=== PATIENT | female | born 1980 | race Caucasian/White ===

== ENCOUNTER 2017-12-01 12:01 | Inpatient (IN) | payer OTHER ==
[~2017-12-01] VITALS: Ht 147.3 cm; Wt 65.3 kg
[~2017-12-01 12:01] MED LIST: ALBU90OI; AZIT250 PO; CHLO500 PO; CIPR500 PO; CLIN300 PO; HYDACE10B PO; HYDACE5 PO; HYDACE5325 PO; KETO10 PO; LEVFLO500 PO; MELO7.5 PO; NAPR500 PO; NAPR550 PO; OXYACE5T PO; OXYACE7.5T PO; PREG75 PO; PROM25 PO; RXCYCL10 PO; RXNAPNA550 PO; RXOXYACE PO; SULI200 PO; SULTRIDS PO; TRAM50 PO
[2017-12-01] MEDS ORDERED: VALA500 PO (12:17)
[2017-12-01] MEDS ORDERED: GABA300 PO (12:17)
[2017-12-01] MEDS ORDERED: Bupropion Xl150 MG PO (12:17)
[2017-12-01 12:54] LABS: Source, Urine Catheter
[2017-12-01 13:06] LABS: BASOPHILS ABSOLUTE AUTO 0.02 K/mm3 (0.00-0.23); BASOPHILS PERCENT AUTO 0 % (0-2); EOSINOPHILS ABSOLUTE AUTO 0.01 K/mm3 (0.00-0.68); EOSINOPHILS PERCENT AUTO 0 % (0-6); Hematocrit 32.3 % (33.0-51.0); Hemoglobin 10.8 g/dL (11.5-16.0); IMMATURE GRAN ABSOLUTE AUTO 0.03 K/mm3 (0.00-0.10); IMMATURE GRAN PERCENT AUTO 0 % (0-1); LYMPHOCYTES ABSOLUTE AUTO 0.94 K/mm3 (0.84-5.20); LYMPHOCYTES PERCENT AUTO 11 % (21-46); MONOCYTES ABSOLUTE AUTO 0.66 K/mm3 (0.16-1.47); MONOCYTES PERCENT AUTO 8 % (4-13); Mean Corpuscular HGB 30.2 pg (26.0-34.0); Mean Corpuscular HGB Conc 33.4 g/dL (31.5-36.5); Mean Corpuscular Volume 90 fL (80-100); Mean Platelet Volume 10.3 fL (9.1-12.4); NEUTROPHILS ABSOLUTE AUTO 6.56 K/mm3 (1.96-9.15); NEUTROPHILS PERCENT AUTO 80 % (41-73); Platelet Count 264 K/mm3 (150-400); RDW Coefficient Variation 12.4 % (11.7-14.2); RDW Standard Deviation 40.4 fL (35.1-46.3); Red Blood Cell Count 3.58 M/mm3 (3.80-5.20); White Blood Cell Count 8.22 K/mm3 (4.00-11.30)
[2017-12-01 13:09] LABS: Bilirubin, Urine Neg (Neg); Blood, Urine 4+ (Neg); Glucose Qualitative, Urine Neg (Neg); Ketones, Urine Neg (Neg); Leukocyte Esterase, Urine 3+ (Neg); Nitrite, Urine Pos (Neg); Protein, Urine 3+ (Neg); Urobilinogen, Urine NORM (Normal)
[2017-12-01 13:16] LABS: International Normalized Ratio 1.02; Prothrombin Time Results 10.5 Sec (9.7-11.5)
[2017-12-01 13:24] LABS: Color, Urine Yellow (P-Yellow)
[2017-12-01 13:25] LABS: Appearance, Urine Hazy (Clear)
[2017-12-01 13:27] LABS: White Blood Cells, Urine TNTC /hpf (0-5)
[2017-12-01 13:28] LABS: Bacteria Not Seen /hpf; Squamous Epithelial Cells Not Seen /hpf (Few)
[2017-12-01 13:44] LABS: Alanine Aminotransfer (ALT/SGP 45 U/L (12-78); Albumin, Blood 3.7 g/dL (3.4-5.0); Albumin/Globulin Ratio 0.9 (0.8-1.8); Alk Phos 118 U/L (50-136); Anion Gap 8 mmol/L (6-16); Aspartate Aminotrans (AST/SGOT 43 U/L (12-37); Bilirubin, Total 0.3 mg/dL (0.1-1.0); Blood Urea Nitrogen 9 mg/dL (8-24); Bun/Creatinine Ratio 12.7 (12.0-20.0); CO2, Blood 25 mmol/L (21-32); Chloride, Blood 102 mmol/L (98-108); Creatinine, Blood 0.71 mg/dL (0.40-1.00); Globulin, Blood 4.3 g/dL (2.2-4.0); Glomerular Filtration Rate >60 (60-); Glucose, Blood 116 mg/dL (70-99); Potassium, Blood 3.7 mmol/L (3.5-5.5); Sodium, Blood 135 mmol/L (136-145)
[2017-12-01 20:25] LABS: U Amphetamine Screen DETECTED; U Barbituate Screen Not Detected; U Benzodiazapine Screen Not Detected; U Buprenorphine Screen Not Detected; U Cannabinoids Screen Not Detected; U Cocaine Screen Not Detected; U Methadone Screen Not Detected; U Methamphetamine Screen DETECTED; U Opiates Screen DETECTED; U Oxycodone Screen Not Detected; U Phencyclidine Screen Not Detected; U Propoxyphene Screen Not Detected
[2017-12-02 05:18] LABS: BASOPHILS ABSOLUTE AUTO 0.01 K/mm3 (0.00-0.23); BASOPHILS PERCENT AUTO 0 % (0-2); EOSINOPHILS ABSOLUTE AUTO 0.01 K/mm3 (0.00-0.68); EOSINOPHILS PERCENT AUTO 0 % (0-6); Hematocrit 27.1 % (33.0-51.0); IMMATURE GRAN ABSOLUTE AUTO 0.02 K/mm3 (0.00-0.10); IMMATURE GRAN PERCENT AUTO 0 % (0-1); LYMPHOCYTES ABSOLUTE AUTO 0.57 K/mm3 (0.84-5.20); LYMPHOCYTES PERCENT AUTO 11 % (21-46); MONOCYTES ABSOLUTE AUTO 0.49 K/mm3 (0.16-1.47); MONOCYTES PERCENT AUTO 9 % (4-13); Mean Corpuscular HGB 30.3 pg (26.0-34.0); Mean Corpuscular HGB Conc 33.2 g/dL (31.5-36.5); Mean Corpuscular Volume 91 fL (80-100); Mean Platelet Volume 10.3 fL (9.1-12.4); NEUTROPHILS ABSOLUTE AUTO 4.13 K/mm3 (1.96-9.15); NEUTROPHILS PERCENT AUTO 79 % (41-73); Platelet Count 208 K/mm3 (150-400); RDW Coefficient Variation 12.4 % (11.7-14.2); RDW Standard Deviation 40.6 fL (35.1-46.3); Red Blood Cell Count 2.97 M/mm3 (3.80-5.20); White Blood Cell Count 5.23 K/mm3 (4.00-11.30)
[2017-12-02 05:43] LABS: Anion Gap 9 mmol/L (6-16); Blood Urea Nitrogen 6 mg/dL (8-24); Bun/Creatinine Ratio 10.1 (12.0-20.0); CO2, Blood 20 mmol/L (21-32); Calcium, Blood 8.2 mg/dL (8.5-10.1); Chloride, Blood 109 mmol/L (98-108); Creatinine, Blood 0.59 mg/dL (0.40-1.00); Glomerular Filtration Rate >60 (60-); Glucose, Blood 148 mg/dL (70-99); Percent Saturation 6.2 % (15.0-50.0); Potassium, Blood 3.9 mmol/L (3.5-5.5); Sodium, Blood 138 mmol/L (136-145)
[2017-12-02] MEDS ORDERED: CEFP200 PO (16:03)
[2017-12-02] MEDS ORDERED: ACIDOPHILUS1 EAC1 PO (16:04)
[2017-12-02] MEDS ORDERED: ROXICODONE5 MG PO (16:05)
== END 2017-12-02 16:43 | disposition home or self-care (01) | DRG 872 ==
LOC: ER 12:01 → MEDS 15:02
PROVIDERS: Family Medicine; Internal Medicine
DX: A41.9 Sepsis, unspecified organism (principal); N39.0 Urinary tract infection, site not specified; N12 Tubulo-interstitial nephritis, not specified as acute or chronic; E87.1 Hypo-osmolality and hyponatremia; D63.8 Anemia in other chronic diseases classified elsewhere; B02.9 Zoster without complications; G89.29 Other chronic pain; M54.9 Dorsalgia, unspecified; F17.210 Nicotine dependence, cigarettes, uncomplicated; Z88.5 Allergy status to narcotic agent; Z88.0 Allergy status to penicillin; Z79.899 Other long term (current) drug therapy
CPT/HCPCS: 36415; 74176; 80048; 80053; 81001; 81025; 82607; 82728; 82746; 83540; 83550; 83605; 85025; 85610; 87077; 87086; 87186; 96361; 96365; 96367; 96375; 99285-25; J0696; J0744; J1885; J2405; J3010; J7030

== ENCOUNTER 2018-06-13 00:29 | Emergency (ER) | payer OTHER ==
[~2018-06-13] VITALS: Ht 147.3 cm; Wt 59.0 kg
[~2018-06-13 00:29] MED LIST changes: +ACIDOPHILUS1 EAC1 PO; +Bupropion Xl150 MG PO; +CEFP200 PO; +GABA300 PO; +ROXICODONE5 MG PO; +VALA500 PO
== END 2018-06-13 04:17 | disposition home or self-care (01) ==
LOC: ER 00:29
DX: S90.01XA Contusion of right ankle, initial encounter (principal); W18.2XXA Fall in (into) shower or empty bathtub, initial encounter; Z88.0 Allergy status to penicillin; Z88.5 Allergy status to narcotic agent; F17.210 Nicotine dependence, cigarettes, uncomplicated
CPT/HCPCS: 73590; 73610; 99283-25; A9270-GY

== ENCOUNTER 2020-09-08 14:51 | Emergency (ER) | payer OTHER ==
[~2020-09-08] VITALS: Ht 147.3 cm; Wt 63.5 kg
[~2020-09-08 14:51] MED LIST changes: +PRED20 PO
[2020-09-08] MEDS ORDERED: CYCL10 PO (18:02)
[2020-09-08] MEDS ORDERED: LIDO700A20 TOP (18:02)
== END 2020-09-08 18:28 | disposition home or self-care (01) ==
LOC: ER 14:51
DX: M54.5 Low back pain (principal); F17.210 Nicotine dependence, cigarettes, uncomplicated; Z88.0 Allergy status to penicillin
CPT/HCPCS: 72100; 96372; 99283-25; A9270; J1885

== ENCOUNTER 2021-05-29 23:13 | Emergency (ER) | payer OTHER ==
[~2021-05-29] VITALS: Ht 147.3 cm; Wt 59.0 kg
[~2021-05-29 23:13] MED LIST changes: +CYCL10 PO; +LIDO700A20 TOP
== END 2021-05-30 01:20 | disposition home or self-care (01) ==
LOC: ER 23:13
DX: J02.9 Acute pharyngitis, unspecified (principal); Z88.0 Allergy status to penicillin; F17.210 Nicotine dependence, cigarettes, uncomplicated
CPT/HCPCS: 87081; 87430; 99283

== ENCOUNTER 2022-02-19 20:18 | Emergency (ER) | payer OTHER ==
[~2022-02-19] VITALS: Ht 147.3 cm; Wt 63.5 kg
[2022-02-19 21:14] LABS: Influenza B, PCR NEGATIVE (NEGATIVE); Resp Syncytial Virus, PCR NEGATIVE (NEGATIVE); SARS-Cov-2 (COVID-19) PCR, MMC NEGATIVE (NEGATIVE)
[2022-02-19 21:20] LABS: Influenza A, PCR POSITIVE (NEGATIVE)
[2022-02-19] MEDS ORDERED: ONDA4ODT MM (21:56)
[2022-02-19] MEDS ORDERED: BENZ100A PO (21:56)
== END 2022-02-19 22:13 | disposition home or self-care (01) ==
LOC: ER 20:18
PROVIDERS: Physician Assistant
DX: J10.1 Influenza due to other identified influenza virus with other respiratory manifestations (principal); F17.210 Nicotine dependence, cigarettes, uncomplicated; Z88.0 Allergy status to penicillin; Z20.822 Contact with and (suspected) exposure to COVID-19
CPT/HCPCS: 0241U; A9270

== ENCOUNTER 2022-02-22 21:17 | Emergency (ER) | payer OTHER ==
[~2022-02-22] VITALS: Ht 147.3 cm; Wt 63.5 kg
[~2022-02-22 21:17] MED LIST changes: +BENZ100A PO; +ONDA4ODT MM
[2022-02-22 23:26] LABS: BASOPHILS ABSOLUTE AUTO 0.01 K/mm3 (0.00-0.23); BASOPHILS PERCENT AUTO 0 % (0-2); EOSINOPHILS ABSOLUTE AUTO 0.01 K/mm3 (0.00-0.68); EOSINOPHILS PERCENT AUTO 0 % (0-6); Hematocrit 30.5 % (33.0-51.0); Hemoglobin 10.8 g/dL (11.5-16.0); IMMATURE GRAN ABSOLUTE AUTO 0.01 K/mm3 (0.00-0.10); IMMATURE GRAN PERCENT AUTO 0 % (0-1); LYMPHOCYTES ABSOLUTE AUTO 1.84 K/mm3 (0.84-5.20); LYMPHOCYTES PERCENT AUTO 37 % (21-46); MONOCYTES ABSOLUTE AUTO 0.49 K/mm3 (0.16-1.47); MONOCYTES PERCENT AUTO 10 % (4-13); Mean Corpuscular HGB 31.4 pg (26.0-34.0); Mean Corpuscular HGB Conc 35.4 g/dL (31.5-36.5); Mean Corpuscular Volume 89 fL (80-100); Mean Platelet Volume 9.8 fL (9.1-12.4); NEUTROPHILS ABSOLUTE AUTO 2.66 K/mm3 (1.96-9.15); NEUTROPHILS PERCENT AUTO 53 % (41-73); Platelet Count 218 K/mm3 (150-400); RDW Coefficient Variation 11.6 % (11.7-14.2); RDW Standard Deviation 37.3 fL (35.1-46.3); Red Blood Cell Count 3.44 M/mm3 (3.80-5.20); White Blood Cell Count 5.02 K/mm3 (4.00-11.30)
[2022-02-22 23:48] LABS: Albumin, Blood 3.7 g/dL (3.4-5.0); Albumin/Globulin Ratio 1.1 (0.8-1.8); Bilirubin, Total 0.2 mg/dL (0.1-1.0); Bun/Creatinine Ratio 19.3 (12.0-20.0); Calcium, Blood 8.8 mg/dL (8.5-10.1); Creatinine, Blood 0.62 mg/dL (0.40-1.00); Globulin, Blood 3.4 g/dL (2.2-4.0); Potassium, Blood 3.3 mmol/L (3.5-5.5); Total Protein, Blood 7.1 g/dL (6.4-8.2)
[2022-02-23] MEDS ORDERED: DOXY100 PO (00:49)
== END 2022-02-23 01:24 | disposition home or self-care (01) ==
LOC: ER 21:17
PROVIDERS: Student in an Organized Health Care Education/Training Program
DX: J18.9 Pneumonia, unspecified organism (principal); F17.210 Nicotine dependence, cigarettes, uncomplicated; Z88.0 Allergy status to penicillin
CPT/HCPCS: 71046; 80053; 85025; 94644; 94664; A9270; J7030

== ENCOUNTER 2022-09-26 18:01 | Emergency (ER) | payer OTHER ==
[~2022-09-26] VITALS: Ht 147.3 cm; Wt 59.0 kg
[~2022-09-26 18:01] MED LIST changes: +DOXY100 PO
[2022-09-26 18:13] VITALS: BP 122/80
[2022-09-26] MEDS ORDERED: IBUP800 PO (19:32)
== END 2022-09-26 19:20 | disposition home or self-care (01) ==
LOC: ER 18:01
DX: M79.632 Pain in left forearm (principal); M79.631 Pain in right forearm; F17.210 Nicotine dependence, cigarettes, uncomplicated; Z88.0 Allergy status to penicillin; Z79.899 Other long term (current) drug therapy
CPT/HCPCS: 96372; 99282-25; A9270; J1885

== ENCOUNTER 2022-11-19 10:26 | Emergency (ER) | payer OTHER ==
[~2022-11-19] VITALS: Ht 147.3 cm; Wt 56.7 kg
[~2022-11-19 10:26] MED LIST changes: +IBUP800 PO
[2022-11-19 11:01] VITALS: BP 114/86
== END 2022-11-19 12:53 | disposition home or self-care (01) ==
LOC: ER 10:26
DX: S09.90XA Unspecified injury of head, initial encounter (principal); W22.8XXA Striking against or struck by other objects, initial encounter; Z88.0 Allergy status to penicillin; F17.210 Nicotine dependence, cigarettes, uncomplicated
CPT/HCPCS: 70450; 96372; 99283-25; A9270; J1885

== ENCOUNTER 2023-02-09 17:23 | Emergency (ER) | payer OTHER ==
[~2023-02-09] VITALS: Ht 147.3 cm; Wt 56.7 kg
[2023-02-09 18:05] VITALS: BP 126/90
[2023-02-09] MEDS ORDERED: HYDROCODONE-AC1 EA19 PO (18:29)
[2023-02-09] MEDS ORDERED: CLIN150 PO (18:29)
[2023-02-09 18:34] LABS: BASOPHILS ABSOLUTE AUTO 0.04 K/mm3 (0.00-0.23); BASOPHILS PERCENT AUTO 1 % (0-2); EOSINOPHILS ABSOLUTE AUTO 0.26 K/mm3 (0.00-0.68); EOSINOPHILS PERCENT AUTO 3 % (0-6); Hematocrit 36.1 % (33.0-51.0); Hemoglobin 12.1 g/dL (11.5-16.0); IMMATURE GRAN ABSOLUTE AUTO 0.01 K/mm3 (0.00-0.10); IMMATURE GRAN PERCENT AUTO 0 % (0-1); LYMPHOCYTES ABSOLUTE AUTO 1.76 K/mm3 (0.84-5.20); LYMPHOCYTES PERCENT AUTO 20 % (21-46); MONOCYTES ABSOLUTE AUTO 0.77 K/mm3 (0.16-1.47); MONOCYTES PERCENT AUTO 9 % (4-13); Mean Corpuscular HGB 30.9 pg (26.0-34.0); Mean Corpuscular HGB Conc 33.5 g/dL (31.5-36.5); Mean Corpuscular Volume 92 fL (80-100); Mean Platelet Volume 9.6 fL (9.1-12.4); NEUTROPHILS ABSOLUTE AUTO 5.82 K/mm3 (1.96-9.15); NEUTROPHILS PERCENT AUTO 67 % (41-73); Platelet Count 350 K/mm3 (150-400); RDW Coefficient Variation 11.5 % (11.7-14.2); RDW Standard Deviation 38.8 fL (35.1-46.3); Red Blood Cell Count 3.92 M/mm3 (3.80-5.20); White Blood Cell Count 8.66 K/mm3 (4.00-11.30)
[2023-02-09 18:59] LABS: Albumin, Blood 3.7 g/dL (3.4-5.0); Albumin/Globulin Ratio 0.9 (0.8-1.8); Bilirubin, Total 0.1 mg/dL (0.1-1.0); Bun/Creatinine Ratio 22.1 (12.0-20.0); Calcium, Blood 9.4 mg/dL (8.5-10.1); Creatinine, Blood 0.68 mg/dL (0.40-1.00); Globulin, Blood 3.9 g/dL (2.2-4.0); Potassium, Blood 3.8 mmol/L (3.5-5.5); Total Protein, Blood 7.6 g/dL (6.4-8.2)
== END 2023-02-09 20:50 | disposition left against medical advice (07) ==
LOC: ER 17:23
PROVIDERS: Physician Assistant
DX: K04.7 Periapical abscess without sinus (principal); L03.211 Cellulitis of face; Z88.0 Allergy status to penicillin; Z79.891 Long term (current) use of opiate analgesic; F17.210 Nicotine dependence, cigarettes, uncomplicated
CPT/HCPCS: 70491; 80053; 85025; 96374-59; 96375-59; 99283-25; J1885; Q9967

== ENCOUNTER 2023-04-03 14:21 | Emergency (ER) | payer OTHER ==
[~2023-04-03] VITALS: Ht 147.3 cm; Wt 50.8 kg
[~2023-04-03 14:21] MED LIST changes: +CLIN150 PO; +HYDROCODONE-AC1 EA19 PO
[2023-04-03 14:34] VITALS: BP 132/87
[2023-04-03 15:24] LABS: Influenza A, PCR NEGATIVE (NEGATIVE); Influenza B, PCR NEGATIVE (NEGATIVE); Resp Syncytial Virus, PCR NEGATIVE (NEGATIVE); SARS-Cov-2 (COVID-19) PCR, MMC NEGATIVE (NEGATIVE)
== END 2023-04-03 16:56 | disposition home or self-care (01) ==
LOC: ER 14:21
PROVIDERS: Student in an Organized Health Care Education/Training Program
DX: J06.9 Acute upper respiratory infection, unspecified (principal); Z88.0 Allergy status to penicillin; F17.210 Nicotine dependence, cigarettes, uncomplicated
CPT/HCPCS: 0241U; 71046; 99283-25

== ENCOUNTER 2023-07-21 04:52 | Emergency (ER) | payer OTHER ==
[~2023-07-21] VITALS: Ht 147.3 cm; Wt 54.4 kg
[2023-07-21 04:58] VITALS: BP 142/91
[2023-07-21] MEDS ORDERED: HYDROcodone 5-APAP 325 TAB PO ONE (06:25)
[2023-07-21] MEDS ORDERED: Cyclobenzaprine HCl 10 MG Tab PO ONE (06:25)
[2023-07-21] MEDS ORDERED: CYCL10 PO (06:59)
[2023-07-21] MEDS ORDERED: HYDR1TAB94 PO (06:59)
== END 2023-07-21 07:32 | disposition home or self-care (01) ==
LOC: ER 04:52
DX: S49.91XA Unspecified injury of right shoulder and upper arm, initial encounter (principal); X50.0XXA Overexertion from strenuous movement or load, initial encounter; F17.210 Nicotine dependence, cigarettes, uncomplicated
CPT/HCPCS: 73030; 99283-25; A9270

== ENCOUNTER 2024-03-14 11:03 | Inpatient (IN) | payer OTHER ==
[~2024-03-14] VITALS: Ht 147.3 cm; Wt 58.6 kg
[~2024-03-14 11:03] MED LIST changes: +HYDR1TAB94 PO
[2024-03-14] MEDS ORDERED: NS 1,000 ML IV SCH ×2 (12:20→14:45)
[2024-03-14] MEDS ORDERED: Ketorolac Tromethamine 30mg Vial IV ONE (12:20)
[2024-03-14] MEDS ORDERED: Ondansetron HCl 2 MG / ML 2ML Vial IV ONE (12:20)
[2024-03-14] MEDS ORDERED: HYDROmorphone HCl/Pf 1MG SYR IV ONE (12:20)
[2024-03-14] MEDS ORDERED: Albuterol 2.5 MG/3 ML VIAL INH SCH (12:25)
[2024-03-14] MEDS ORDERED: CefTRIAXone Sodium 1,000 MG in NS 50 ML IV ONE (12:25)
[2024-03-14 13:02] LABS: BASOPHILS ABSOLUTE AUTO 0.01 K/mm3 (0.00-0.23); BASOPHILS PERCENT AUTO 0 % (0-2); EOSINOPHILS ABSOLUTE AUTO 0.03 K/mm3 (0.00-0.68); EOSINOPHILS PERCENT AUTO 1 % (0-6); Hematocrit 26.8 % (33.0-51.0); Hemoglobin 9.1 g/dL (11.5-16.0); IMMATURE GRAN ABSOLUTE AUTO 0.04 K/mm3 (0.00-0.10); IMMATURE GRAN PERCENT AUTO 1 % (0-1); LYMPHOCYTES ABSOLUTE AUTO 1.35 K/mm3 (0.84-5.20); LYMPHOCYTES PERCENT AUTO 20 % (21-46); MONOCYTES ABSOLUTE AUTO 0.57 K/mm3 (0.16-1.47); MONOCYTES PERCENT AUTO 9 % (4-13); Mean Corpuscular HGB 30.4 pg (26.0-34.0); Mean Corpuscular Volume 90 fL (80-100); Mean Platelet Volume 9.4 fL (9.1-12.4); NEUTROPHILS ABSOLUTE AUTO 4.66 K/mm3 (1.96-9.15); NEUTROPHILS PERCENT AUTO 70 % (41-73); Platelet Count 400 K/mm3 (150-400); RDW Coefficient Variation 11.2 % (11.7-14.2); RDW Standard Deviation 36.8 fL (35.1-46.3); Red Blood Cell Count 2.99 M/mm3 (3.80-5.20); White Blood Cell Count 6.66 K/mm3 (4.00-11.30)
[2024-03-14 13:14] LABS: Albumin, Blood 2.7 g/dL (3.4-5.0); Albumin/Globulin Ratio 0.6 (0.8-1.8); Bilirubin, Total 0.5 mg/dL (0.1-1.0); Bun/Creatinine Ratio 17.9 (12.0-20.0); Calcium, Blood 8.6 mg/dL (8.5-10.1); Creatinine, Blood 0.5 mg/dL (0.40-1.00); Globulin, Blood 4.4 g/dL (2.2-4.0); Potassium, Blood 3.7 mmol/L (3.5-5.5); Total Protein, Blood 7.1 g/dL (6.4-8.2)
[2024-03-14 13:31] LABS: CORONAVIRUS COVID-19 AG Negative (NEGATIVE); INFLUENZA A AG Negative (NEGATIVE); INFLUENZA B AG Negative (NEGATIVE)
[2024-03-14] MEDS ORDERED: HYDROmorphone HCl/Pf 1MG SYR IV PRN (14:40)
[2024-03-14] MEDS ORDERED: Acetaminophen 325 MG TABLET PO PRN (14:40)
[2024-03-14] MEDS ORDERED: Ipratropium/Albuterol SulF 2.5-0.5MG/3 ML Amp INH SCH (14:40)
[2024-03-14] MEDS ORDERED: Prochlorperazine Edisylate 10 mg Vial IV PRN (14:45)
[2024-03-14] MEDS ORDERED: FLU VACC TS2024-25(6MOS UP)/PF 45 MCG/0.5 ML SYRINGE IM SCH (14:45)
[2024-03-14] MEDS ORDERED: CefTRIAXone Sodium 1,000 MG in NS 100 ML IV ONE (14:50)
[2024-03-14 14:59] LABS: Percent Saturation 10.8 % (15.0-50.0)
[2024-03-14 15:30] VITALS: BP 93/66
[2024-03-14] MEDS ORDERED: MethylPREDNISolone Sod Succ 125 MG Vial IV SCH (16:00)
--- NOTE | 2024-03-14 18:23 | NUR ---
SHIFT SUMMARY 1525 RECEIVED PT TO RM 361 VIA GURNEY FROM ER. PT ABLE TO TX SELF TO BED. A&O, INDEPENDENT IN RM AND TO BTHRM. PT ADMITTED FOR BL PNM; LUNGS T/O VERY COARSE. PT TO ER WITH C/O SORE THROAT, COUGH, BODY ACHES AND DYSPNEA WITH EXERTION. PT REMAINS ON RA. RESTING QUIETLY SINCE ADMISSION. IVF'S INFUSING PER EMAR. IV ABX GIVEN IN ER. DENIES FURTHER NEEDS AT THIS TIME. CALL LT IN REACH.
[2024-03-14 20:09] VITALS: BP 111/74
[2024-03-14] MEDS ORDERED: GuaiFENesin 600 MG TabCR PO SCH (21:00)
[2024-03-14] MEDS ORDERED: Sennosides 8.6 MG Tab PO SCH (21:00)
--- NOTE | 2024-03-15 04:58 | NUR ---
SHIFT SUMMARY. NO ACUTE CHANGES. PATIENT IS A&OX4, INDEPENDENT IN ROOM. PATIENT APPEARS VERY TIRED-EASILY AROUSABLE. PATIENT REPORTS FEELING "TIRED AND NOT HUNGRY". PATIENT SLEPT T/O MOST OF SHIFT. PATIENT IS COOPERATIVE WITH CARE. RESPIRATORY IN TO TREAT. IV FLUIDS INFUSING PER ORDER. BED IS LOCKED IN THE LOWEST POSITION WITH CALL LIGHT IN REACH. CARE IS ONGOING.
[2024-03-15 06:01] LABS: BASOPHILS PERCENT AUTO 0 % (0-2); EOSINOPHILS PERCENT AUTO 0 % (0-6); Hemoglobin 9.1 g/dL (11.5-16.0); IMMATURE GRAN ABSOLUTE AUTO 0.06 K/mm3 (0.00-0.10); IMMATURE GRAN PERCENT AUTO 2 % (0-1); LYMPHOCYTES ABSOLUTE AUTO 0.51 K/mm3 (0.84-5.20); LYMPHOCYTES PERCENT AUTO 17 % (21-46); MONOCYTES ABSOLUTE AUTO 0.06 K/mm3 (0.16-1.47); MONOCYTES PERCENT AUTO 2 % (4-13); Mean Corpuscular HGB 30.5 pg (26.0-34.0); Mean Corpuscular HGB Conc 33.7 g/dL (31.5-36.5); Mean Corpuscular Volume 91 fL (80-100); Mean Platelet Volume 9.6 fL (9.1-12.4); NEUTROPHILS ABSOLUTE AUTO 2.47 K/mm3 (1.96-9.15); NEUTROPHILS PERCENT AUTO 80 % (41-73); Platelet Count 381 K/mm3 (150-400); RDW Coefficient Variation 11.2 % (11.7-14.2); RDW Standard Deviation 37.3 fL (35.1-46.3); Red Blood Cell Count 2.98 M/mm3 (3.80-5.20)
[2024-03-15 06:13] VITALS: BP 135/88
[2024-03-15 06:36] LABS: Bun/Creatinine Ratio 29.7 (12.0-20.0); Calcium, Blood 8.8 mg/dL (8.5-10.1); Creatinine, Blood 0.4 mg/dL (0.40-1.00); Potassium, Blood 4.2 mmol/L (3.5-5.5)
[2024-03-15 07:03] VITALS: BP 126/81
[2024-03-15] MEDS ORDERED: Iron Dextran 50 MG / ML 2ML Vial IV ONE (08:55)
[2024-03-15] MEDS ORDERED: Enoxaparin 40 MG/0.4 ML SYR SC SCH (09:00)
[2024-03-15] MEDS ORDERED: CefTRIAXone Sodium 2,000 MG in NS 100 ML IV SCH (09:00)
--- NOTE | 2024-03-15 09:05 | NUR ---
AM ASSESSMENT: Pt resting in bed. Wakes to verbal stimulus. LS very tight with wheezing throughout. Pt tachypnic and SOB. HR reg. BT positive. Pulses palp. Pt states, "I think I was just sick for too long before coming in". C/O pain in chest, 10/28. Pluretic type pain. Will medicate per orders. Call light in reach. Will continue to monitor.
[2024-03-15] MEDS ORDERED: Iron Dextran 975 MG in NS 250 ML IV ONE (11:00)
--- NOTE | 2024-03-15 14:02 | NUR ---
ASSUMED CARE OF PATIENT. LYING SUPINE IN BED, WATCHING TV. DENIES NEEDS. CALL LIGHT WITHIN REACH.
[2024-03-15 15:33] VITALS: BP 106/73
[2024-03-15 18:12] VITALS: BP 126/90
--- NOTE | 2024-03-15 18:40 | NUR ---
PT CALLED WITH C/O 12/28 NON-RADIATING CHEST PAIN AFTER AMBULATING TO THE BATHROOM. LABORED BREATHING SPO2 AND RR OF 26. SPO2 91% BUT QUICKLY DROPPED TO 86% LUNG SOUNDS TIGHT THROUGHOUT WITH RHONCHI. INCREASED 02 TO 4LPM/NC AND INITIATED EKG; NSR WITHOUT ECTOPY. 1MG IV HYDROMORPHONE ADMINISTERED. BREATHING BEGAN SLOWING AND PT VISIBLY MORE COMFORTABLE WITH RELAXED FACIAL EXPRESSIONS AND POSTURE. VOICED RELIEF OF PAIN. YAMILET GAY, [employer] AND DR. ROSENBERG NOTIFIED. NO NEW ORDERS.
--- NOTE | 2024-03-15 18:48 | NUR ---
END OF SHIFT SUMMARY: A&Ox4. PLEASANT AND COOPERATIVE WITH CARE. CALLS APPROPRIATELY AND IS ABLE TO ADVOCATE NEEDS EFFECTIVELY. INDEPENDENT WITH AMBULATION. CONTINENT OF BOWEL AND BLADDER. LBM TODAY. MEDS WHOLE WITH FLUIDS. EPISODE OF CHEST PAIN TODAY AFTER AMBULATING TO BATHROOM RESOLVED WITH IV DILAUDID; EKG AND V/S NOT INDICATIVE OF CARDIAC EVENT. O2 INCREASED TO 4LPM/NC AFTER SPO2 DROPPED TO 86% WITH C/O CP. SEE NOTE. BED IN LOWEST POSITION, CALL LIGHT WITHIN REACH, ALL NEEDS MET. REPORT TO ONCOMING NURSE.
[2024-03-15 19:26] VITALS: BP 121/70
[2024-03-16 02:02] VITALS: BP 117/65
--- NOTE | 2024-03-16 04:16 | NUR ---
SHIFT SUMMARY. PATIENT IS A&OX4. PATIENT AMBULATES INDEPENDENTLY IN ROOM WITH STEADY GAIT. PATIENT C/O CHEST PAIN X1 THIS SHIFT-PAIN IS PLEURITIC THAT TENDS TO INCREASES AT TIMES OF AMBULATION-MEDICATED PER EMAR WITH DILAUDID WITH IMPROVEMENT TO PAIN. PATIENT CONTINUES TO HAVE A HARSH COUGH. RT IN TO SEE PATIENT T/O NIGHT. PATIENT SOMULENT MOST OF NIGHT. PATIENT SATTING AROUND THE MID 90'S ON 2LPM VIA NASAL CANNULA. PATIENT IS ON CONTINUOUS PULSE OX. BED IS LOCKED IN THE LOWEST POSITION WITH CALL LIGHT IN REACH. PATIENT DENIES NEEDS AT THIS TIME. CARE IS ONGOING.
[2024-03-16 04:54] LABS: BASOPHILS ABSOLUTE AUTO 0.01 K/mm3 (0.00-0.23); BASOPHILS PERCENT AUTO 0 % (0-2); EOSINOPHILS PERCENT AUTO 0 % (0-6); Hematocrit 25.8 % (33.0-51.0); Hemoglobin 8.5 g/dL (11.5-16.0); IMMATURE GRAN ABSOLUTE AUTO 0.16 K/mm3 (0.00-0.10); IMMATURE GRAN PERCENT AUTO 2 % (0-1); LYMPHOCYTES ABSOLUTE AUTO 1.17 K/mm3 (0.84-5.20); LYMPHOCYTES PERCENT AUTO 17 % (21-46); MONOCYTES ABSOLUTE AUTO 0.61 K/mm3 (0.16-1.47); MONOCYTES PERCENT AUTO 9 % (4-13); Mean Corpuscular HGB 30.7 pg (26.0-34.0); Mean Corpuscular HGB Conc 32.9 g/dL (31.5-36.5); Mean Corpuscular Volume 93 fL (80-100); Mean Platelet Volume 9.1 fL (9.1-12.4); NEUTROPHILS ABSOLUTE AUTO 5.03 K/mm3 (1.96-9.15); NEUTROPHILS PERCENT AUTO 72 % (41-73); Platelet Count 449 K/mm3 (150-400); RDW Coefficient Variation 11.3 % (11.7-14.2); RDW Standard Deviation 38.7 fL (35.1-46.3); Red Blood Cell Count 2.77 M/mm3 (3.80-5.20); White Blood Cell Count 6.98 K/mm3 (4.00-11.30)
[2024-03-16 07:23] VITALS: BP 114/75
[2024-03-16] MEDS ORDERED: PredniSONE 20 MG Tab PO SCH (09:00)
[2024-03-16 15:14] VITALS: BP 129/69
--- NOTE | 2024-03-16 18:26 | NUR ---
PT CONTINUES TO GET UP FOR BATHROOM NEEDED. STATES FEELS BETTER. RIB PAIN CONTINUES TO BE PRESENT WHEN UP WALKING ABOUT, BUT STATES IS LESS THAN IT WAS YESTERDAY. OVERALL IMPROVEMENT PER PT, DID ASK IF SHE COULD GO OUT TO SMOKE. NO OTHER CONCERNS NOTED. BED IN LOW POSITION, CALL LITE IN REACH, CALLS APPROP
[2024-03-16] MEDS ORDERED: Nicotine 21 MG PATCH TOP SCH (19:40)
[2024-03-16 20:21] VITALS: BP 107/67
--- NOTE | 2024-03-17 04:17 | NUR ---
SHIFT SUMMARY 43 YR F ADMITTED ON 03/14/24. FULL CODE. NO ACUTE CHANGES THIS SHIFT. PT C/O PAIN IN HER CHEST AND WAS MEDICATED PER EMAR. SHE APPEARS TO HAVE SLEPT COMFORTABLY THROUGHOUT THE NIGHT. SHE IS INDEPENDANT IN THE ROOM. NOTHING NEW TO REPORT. BED IN LOW POSITION AND CALL LIGHT IN REACH.
[2024-03-17 05:12] VITALS: BP 146/88
[2024-03-17 07:28] VITALS: BP 109/56
[2024-03-17] MEDS ORDERED: NICO21TP TOP (10:19)
[2024-03-17] MEDS ORDERED: MASOPHEN325 M4 PO (10:19)
[2024-03-17] MEDS ORDERED: GUAI600T33 PO (10:19)
[2024-03-17] MEDS ORDERED: CEFU500T30 PO (10:20)
[2024-03-17] MEDS ORDERED: AZIT250 PO (10:20)
[2024-03-17] MEDS ORDERED: PRED20 PO (10:22)
--- NOTE | 2024-03-17 10:54 | NUR ---
pt was discharged home with loved one. all PIV's removed. pt had no questions or concerns with discharge paper work.
== END 2024-03-17 10:50 | disposition home or self-care (01) | DRG 195 ==
LOC: ER 11:03 → MEDS 15:08
PROVIDERS: Emergency Medicine; ADMIT Internal Medicine
DX: J18.9 Pneumonia, unspecified organism (principal); F17.210 Nicotine dependence, cigarettes, uncomplicated; G89.4 Chronic pain syndrome; F15.90 Other stimulant use, unspecified, uncomplicated; M54.9 Dorsalgia, unspecified; F32.A Depression, unspecified; F41.9 Anxiety disorder, unspecified; D50.9 Iron deficiency anemia, unspecified; Z86.19 Personal history of other infectious and parasitic diseases; Z90.710 Acquired absence of both cervix and uterus; Z88.0 Allergy status to penicillin; Z88.1 Allergy status to other antibiotic agents; Z79.899 Other long term (current) drug therapy
CPT/HCPCS: 36415; 71046; 80048; 80053; 82728; 83540; 83550; 83605; 84145; 85025; 87040; 87428-QW; 93005; 93010; 94640; 94644; 94664; 94760; 94762; 96365; 96375; 99285-25; A9270; J0696; J1171; J1650; J1750; J1885; J2405; J2919; J7030; J7050; J7512

== ENCOUNTER 2024-12-26 22:13 | Emergency (ER) | payer OTHER ==
[~2024-12-26] VITALS: Ht 147.3 cm; Wt 56.7 kg
[~2024-12-26 22:13] MED LIST changes: +CEFU500T30 PO; +GUAI600T33 PO; +MASOPHEN325 M4 PO; +NICO21TP TOP
[2024-12-26 22:25] VITALS: BP 131/72
== END 2024-12-27 01:07 | disposition left against medical advice (07) ==
LOC: ER 22:13
DX: M79.644 Pain in right finger(s) (principal); Z53.29 Procedure and treatment not carried out because of patient's decision for other reasons; W22.8XXA Striking against or struck by other objects, initial encounter
CPT/HCPCS: 99281